=== PATIENT | female | born 1975 | race Caucasian/White ===

== ENCOUNTER 2022-10-14 08:24 | Observation (INO) ==
--- NOTE | 2022-09-08 15:09 | PAT Medication Instructions ---
Medication Instructions Date of Service September 08, 2022 Home Medications amoxicillin 500 mg tablet 500 mg PO TID aspirin 81 mg tablet,delayed release 81 mg PO QAM multivitamin 1 cap PO QAM Continue as directed amoxicillin 500 mg tablet 500 mg PO TID DO NOT take the morning of surgery multivitamin 1 cap PO QAM Take morning of surgery With a small sip of water, OTHERWISE NOTHING TO EAT OR DRINK AFTER MIDNIGHT: aspirin 81 mg tablet,delayed release 81 mg PO QAM (continue as normal unless told otherwise by surgeon) Other Notes If you have any questions please call us at [phone] or [phone] or [phone] or [phone]
--- NOTE | 2022-09-16 10:45 | Anesthesiology Consultation ---
Date of Service September 16, 2022 Assessment & Plan (1) Encounter for pre-operative examination: Plan - check urine test STAT am DOS. - toothache, scheduled for dental procedure 10/06/22, completed amoxicillin course: pt advised she needs to call the surgeon's office. I notified Sofía with surgeon's office. - Outpatient joint assessment: Patient is currently scheduled for inpatient pathway. If re-evaluated and patient/surgeon requests outpatient pathway, patient is not acceptable candidate for outpatient joint program from anesthesia standpoint. Chart Review Chart Review: Acceptable Risk for Surgery and Patient seen in Pre Admission Testing Teaching & Discussion Pre-Anesthesia Teaching/Discussion Notes: Instructed NPO after midnight before surgery, except medications with 15 cc of water. Medication instructions provided according to the PAT guidelines. History Surgery Operation Date: 10/14/22 09:25 Proposed Procedures p Left Total Knee Arthroplasty - Neel Hatfield, Height/Weight Height: 4 ft 11.5 in Weight: 105.8 kg Allergies Allergy/AdvReac Type Severity Reaction Status Date / Time No Known Allergies Allergy Verified 09/08/22 13:40 Medications Home Medications Medication Instructions Recorded Confirmed Last Taken aspirin 81 mg tablet,delayed 81 mg PO QAM 09/08/22 09/08/22 Unknown release multivitamin 1 cap PO QAM 09/08/22 09/08/22 Unknown Past Medical History Medical History (Updated 09/16/22 @ 10:43 by Theresa Garsia PA-C) Elbow fracture, left 14 y/o Family history of reaction to anesthesia sister - occ nausea. GERD (gastroesophageal reflux disease) rare, stable per pt Toothache unknown cause of toothache...current abx for/awaiting dental appointment/currently scheduled for Oct 06 2022. Patient denies h/o stroke, seizures, heart attack, heart failure, DM, HTN, blood clots or blood transfusions. Exercise / Class Metabolic Activity III < 4 Walking/Shop/Light housework (denies chest discomfort or shortness of breath with usual activities) Past Family History Family History Mother Family history of lung cancer Other Family history of cancer Family history of diabetes mellitus in father Past Surgical History Surgical History History of appendectomy History of tonsillectomy and adenoidectomy Past Anesthesia History No Hx of Anesthesia Complications and Other (sister with occasional nausea) History of PONV No Hx of PONV and No Hx of Motion Sickness Social History Smoking Status: Former smoker (intermittently) Do You Dip or Chew Tobacco: No Hx Alcohol Use: Yes alcohol intake frequency: holidays/special occasions only Hx Substance Use: No substance use type: does not use Review of Systems Snoring, denies witnessed apneas. Patient denies chest pain, shortness of breath, dyspnea on exertion, fever, chills, cough, wheezing, or palpitations. Physical Exam Vital Signs Vitals BP 112/67 P 73 TEMP 98.7 SP02 96% on RA RESP 18 Physical Patient resting comfortably in chair in NAD, alert and oriented, responding appropriately throughout visit Full cervical extension range of motion without pain TMD < 3 finger breadths Mallampati Score 3 Dentition: current left lower side chipped tooth, denies loose teeth, caps/crowns, implants or bridges Lungs: normal respiratory effort. Good air movement, clear throughout to auscultation, no adventitious breath sounds Cardiac: regular rate and rhythm, no murmurs noted Carotid arteries: negative bruit bilat Lab Results Anesthesia Preop Results Results Anesthesia Widget: WBC 6.37 K/ul (4.8-10.8) 09/16/22 Hgb 12.8 g/dl (12.0-16.0) 09/16/22 Hct 37.5 % (37.0-47.0) 09/16/22 Plt 378 K/uL (130-400) 09/16/22 Na 137 mmol/L (136-145) 09/16/22 K 4.8 mmol/L (3.5-5.1) 09/16/22 Cl 105 mmol/L (98-107) 09/16/22 CO2 27 mmol/L (21-32) 09/16/22 BUN 10 mg/dl (6-23) 09/16/22 Creat 0.74 mg/dl (0.6-1.2) 09/16/22 Glucose Level 94 mg/dl (70-99(Fasting)) 09/16/22 PT 10.9 Seconds (9.0-12.0) 09/16/22 PTT 27.3 Seconds (21.0-31.0) 09/16/22 INR 1.0 (0.9-1.1) 09/16/22 Blood Type AB Positive 09/16/22 Antibody Screen NEGATIVE 09/16/22 Testing Electrocardiogram Date: 09/16/22 NSR, rate 65 bpm Chest X-Ray Date: 09/16/22 No acute cardiopulmonary findings
--- NOTE | 2022-10-13 07:22 | History & Physical Report ---
Date of Service October 13, 2022 Assessment & Plan (1) Osteoarthritis of left knee: We will proceed with a left total knee arthroplasty. Postoperatively she will be started on aspirin for DVT prophylaxis and kept overnight in the hospital for postop medical management. She plans to have the hospital set up home health for discharge. History of Present Illness Chief Complaint: Osteoarthritis of the left knee. Primary Care Provider: Mabel Irwin Iker Dale is a pleasant 46-year-old female who has been dealing with chronic increasing bilateral knee pain, left worse than right. This has been going on for years. She has been seeing another provider. She has had multiple injections. She has done therapy. She has been taking anti-inflammatories and has done activity modification. Unfortunately, her symptoms are worsening and her function is declining. She is having a difficult time ambulating. After failed extensive conservative treatment, she has elected proceed with a left total knee arthroplasty. . Allergies Allergy/AdvReac Type Severity Reaction Status Date / Time No Known Allergies Allergy Verified 09/08/22 13:40 Home Medications Medication Instructions Recorded Confirmed Type aspirin 81 mg tablet,delayed 81 mg PO QAM 09/08/22 09/08/22 History release multivitamin 1 cap PO QAM 09/08/22 09/08/22 History Past Med/Surg History Medical History Elbow fracture, left 14 y/o Family history of reaction to anesthesia sister - occ nausea. GERD (gastroesophageal reflux disease) rare, stable per pt Toothache unknown cause of toothache...current abx for/awaiting dental appointment/currently scheduled for Oct 06 2022. Surgical History History of appendectomy History of tonsillectomy and adenoidectomy Family History Mother Family history of lung cancer Other Family history of cancer Family history of diabetes mellitus in father Social History Smoking Status: Former smoker (intermittently) Do You Dip or Chew Tobacco: No; Hx Alcohol Use: Yes Hx Substance Use: No Preferred Language: Tajik Communication Ability: Effective Tribal [employer] Member Required: No Beliefs That Will Affect Care: None Current Living Situation: Family Current Living Situation Comment: live with parents Feels Safe at Home: Yes Assistive Devices: Contacts and Glasses Review of Systems All systems reviewed & are unremarkable except as noted in HPI & below. Physical Exam On physical examination of left knee, she has range of motion from 10 to 90 degrees. She has no gross instability. She has pain over the distal medial femoral condyle.. Constitutional WD/WN, vitals as above Eyes PERRL, conjunctivae normal, anicteric sclerae ENMT external ear and nose normal, oropharynx normal Neck trachea midline, no thyromegaly Respiratory normal respiratory effort, lungs clear to auscultation Cardiovascular RRR, no murmur, no edema Gastrointestinal (Abdomen) normal bowel sounds, soft, nontender, no hepatosplenomegaly Skin no rashes, warm and dry Psychiatric A+Ox3, euthymic affect Results & Data Results & Data Laboratory Results . Diagnostic Findings X-rays of the left knee show severe osteoarthritis with joint space narrowing osteophyte formation and [id number] tubulation.. PG Care Time/CCT Total # of Minutes Spent Total Time Spent with Patient: Total time spent is greater than 50% in coordination of care (as documented) at patient's floor/unit and/or counseling patient: Coding Level of Care Code None Diagnoses Osteoarthritis of left knee M17.12
--- NOTE | 2022-10-14 08:14 | History & Physical Bridge Note ---
Date of Service October 14, 2022 History & Physical Bridge Note I have examined the patient, reviewed the History & Physical and in the interval since the performance of the History & Physical I have noted the following changes of clinical significance: no changes noted
[~2022-10-14 08:24] MED LIST: ACETAMINOPHEN 500 MG TAB PO SCH; BUPIVACAINE 0.5 % 5 MG/1 ML PF 10ML VIAL ONE; FAMOTIDINE 20 MG TAB PO SCH; GABAPENTIN 900 MG DOSE PO SCH; LR 500ML BOLUS, THEN 15ML/HR IV SCH; LR 60ML/HR IV SCH; ORTHO JOINT MIX INFIL SCH; ROPIVACAINE 0.5% 5 MG/ML 30 ML VIAL ONE; TRANEXAMIC ACID 1,000 MG **IV Intra-op IV SCH; TRANEXAMIC ACID 1,000 MG **IV Pre-op IV SCH; ceFAZolin 2000MG 2,000 MG/15 ML SYR IV SCH; dexAMETHasone 4 MG TAB PO SCH
[2022-10-14] MEDS ORDERED: PROPOFOL IV EMULSION 10 MG/ML 20 ML VIAL IV ONE (08:25)
[2022-10-14] MEDS ORDERED: MIDAZOLAM HCL 1 MG/ML 2ML VIAL ONE (08:25)
[2022-10-14] MEDS ORDERED: KETAMINE 50 MG/5 ML SYRINGE ONE (08:25)
[2022-10-14] MEDS ORDERED: LIDOCAINE 2% 2 ML VIAL/AMP(20MG/ML) INFIL ONE (08:25)
[2022-10-14] MEDS ORDERED: ORTHO JOINT ANESTHETIC ONE (09:11)
[2022-10-14] MEDS ORDERED: ATROPINE SULFATE 0.1 MG/ML 10ML SYR IV PRN (09:19)
[2022-10-14] MEDS ORDERED: fentaNYL citrate PF 100 MCG/2 ML VIAL IV PRN (09:19)
[2022-10-14] MEDS ORDERED: ONDANSETRON INJ 2 MG/ML 2 ML VIAL IV PRN ×2 (09:19→12:33)
[2022-10-14] MEDS ORDERED: ePHEDrine sulfate 50 MG/ML AMP IV PRN (09:19)
--- NOTE | 2022-10-14 11:02 | Operative Report ---
PG Post Operative Report Pre & Post Diagnosis Operation Date: 10/14/22 10:00 Pre-Op Diagnosis: Degenerative Joint Disease Left Knee Post-Op Diagnosis: Degenerative Joint Disease Left Knee I identified the patient and participated in the time-out.: Yes Procedure Operation Date: 10/14/22 10:00 Actual Procedures p Left Total Knee Arthroplasty(Left) - Neel Hatfield DO Surgeon Neel Hatfield DO [employer] Machine Operator Neel Weston PA-C Estimated Blood Loss 30 Findings Consistent with Post-Op Diagnosis Specimens Left femoral tibial bone Description of Procedure Implants used: I used a Anat Persona total knee arthroplasty system with a size 6 standard PS femur, C tibia, 31 oval patella, and a size 12 CPS polyethylene bearing. All components were cemented in place with Biomet cement. [facility] for the above procedure. She was seen in the preoperative holding area and the operative extremity was identified and signed. She was given a preoperative antibiotic, TXA, a spinal anesthetic and an adductor nerve block. She was taken back to the operating room and laid on the table in supine position. She was given basic sedation. The operative knee was then prepped and draped in sterile fashion. A timeout was done, and the patient and the operative extremity was properly identified. A midline incision was made directly over the patella. Dissection was taken down to the extensor mechanism. A midvastus arthrotomy was used. The medial retinaculum was released and the fat pad was mostly excised. The knee was flexed and the ACL, PCL, and meniscus were removed. A drill was sent down the center of the femoral canal followed by an intramedullary ange. Off that ange a distal femoral cutting block was placed. 9 mm was resected off the distal femur at 5 of valgus. A posterior referencing AP sizing guide was then placed on the distal femur. The femur measured to be a size 6. 2 drill holes were placed in 3 of external rotation. A 4-in-1 cutting block was then impacted into place. Anterior, posterior, and chamfer cuts were then made. The proximal tibia was then exposed. An external tibial alignment guide was placed. A tibial cut guide was then anchored in place and the proximal tibia was then resected. The posterior aspect of the knee was then opened up and any additional meniscus fragments and osteophytes were removed. The tibia measured to be a size C. The tibial plate was then placed in the appropriate rotation and the tibia was drilled and punched. Trial components were then placed. I used a size 12 CPS polyethylene insert. The knee was brought through a full range of motion and felt to be stable. The peg holes for the femoral component were then drilled. The patella was then everted and 9 mm was resected off the posterior aspect of the patella. The patella measured to be a size 31 oval. 3 peg holes were then drilled. A trial patella was placed. The knee was once again brought through a full range of motion and felt to be stable. Trial components were then removed. The surrounding soft tissues were injected with 100 cc of an orthopedic pain control cocktail. All components were then cemented into place with Biomet cement. The final polyethylene insert was then snapped into place. Once cement was dry the tourniquet was deflated. Hemostasis was obtained. A dilute betadyne lavage was then done for 3 minutes. The joint was then irrigated with normal saline solution. The midvastus arthrotomy was then closed with #1 Vicryl suture. The skin was closed with 2-0 Vicryl, 3-0V lock suture, and bhavana. A soft compressive dressing was placed. She was then transferred to a hospital bed and taken to the postanesthesia care unit in stable condition. She tolerated the procedure well. Neel Weston PA-C, was present for the entire procedure. He was critical for patient positioning, prepping, draping, retraction exposure, wound closure and application of sterile dressing. I attest to the content of the Intraoperative Record and any orders documented therein. Any exceptions are noted below.
--- NOTE | 2022-10-14 12:19 | Anesthesiology Progress Note ---
Date of Service October 14, 2022 Anesthesia Post Procedure Vital Signs Vital Signs: Temp Pulse Resp BP Pulse Ox O2 Del Method O2 Flow Rate 10/14/22 12:05 98.2 F 66 17 116/77 99 Room Air 10/14/22 11:55 69 18 117/70 98 Room Air 10/14/22 11:45 63 20 112/72 99 Nasal Cannula 2 10/14/22 11:35 68 22 114/73 99 Nasal Cannula 2 10/14/22 11:25 98.2 F 79 18 114/68 94 Nasal Cannula 2 10/14/22 08:42 98.6 F 103 H 20 134/82 95 Room Air Pain Intensity Left Knee: Pain Intensity: 0 Transfer of Care Handoff Completed per policy Notes Mental Status: alert / awake / arousable and participated in evaluation Patient Amnestic to Procedure: Yes Nausea / Vomiting: adequately controlled Pain: adequately controlled Airway Patency, RR, SpO2: stable & adequate BP & HR: stable & adequate Hydration State: stable & adequate Anesthetic Complications: no major complications apparent and Pt Satisfied with anesthetic care
[2022-10-14] MEDS ORDERED: SODIUM CHLORIDE 0.9% 1,000 ML IV SCH (12:33)
[2022-10-14] MEDS ORDERED: HYDROmorphone INJ 0.5 MG/0.5 ML SYR IV PRN (12:33)
[2022-10-14] MEDS ORDERED: oxyCODONE HCL IR 5 MG TAB (IMMEDIATE RELEASE) PO PRN (12:33)
[2022-10-14] MEDS ORDERED: NALOXONE HCL 0.4 MG/1 ML VIAL/CARP IV PRN (12:33)
[2022-10-14] MEDS ORDERED: METOCLOPRAMIDE HCL INJ 5 MG/ML 2 ML VIAL IV PRN (12:33)
[2022-10-14] MEDS ORDERED: MAGNESIUM HYDROXIDE SUSP 30 ML UDC PO PRN (12:33)
[2022-10-14] MEDS ORDERED: bisacodyL 10 MG SUPP PR PRN (12:33)
--- NOTE | 2022-10-14 12:41 | XRay Report ---
XR knee LT 1 or 2V routine CLINICAL HISTORY: Surgical Post Op TECHNIQUE: 2 views of the left knee were obtained. Comparison: Comparison is made to knee radiograph 08/17/2022 FINDINGS: Patient is status post total knee arthroplasty with expected postsurgical changes including soft tiss ue swelling and subcutaneous emphysema. No periarticular lucency or hardware fracture is seen. IMPRESSION: Expected postoperative appearance status post placement of total knee arthroplasty. ACT 112: Negative or not required by law. Electronically signed by: Bonilla Good M.D. 10/14/2022 12:40 PM
[2022-10-14] MEDS: ACETAMINOPHEN 500 MG TAB PO SCH ×2 (13:25→21:34)
[2022-10-14] MEDS: KETOROLAC 30 MG/ML VIAL IV SCH ×2 (13:25→18:29)
[2022-10-14] MEDS: ceFAZolin 2000MG 2,000 MG/15 ML SYR IV SCH (17:17)
[2022-10-14] MEDS: ASPIRIN 81 MG ECTAB PO SCH (20:18)
[2022-10-14] MEDS: DOCUSATE SODIUM 100 MG CAP PO SCH (20:19)
[2022-10-14] MEDS ORDERED: SENNA 8.6 MG TAB PO SCH (21:00)
[2022-10-15] MEDS: ceFAZolin 2000MG 2,000 MG/15 ML SYR IV SCH (01:30)
[2022-10-15] MEDS: KETOROLAC 30 MG/ML VIAL IV SCH ×2 (01:30→06:07)
[2022-10-15] MEDS: ACETAMINOPHEN 500 MG TAB PO SCH (06:07)
[2022-10-15] MEDS: ASPIRIN 81 MG ECTAB PO SCH (08:00)
[2022-10-15] MEDS ORDERED: dexAMETHasone 4 MG TAB PO SCH (08:00)
[2022-10-15] MEDS: DOCUSATE SODIUM 100 MG CAP PO SCH (08:01)
--- NOTE | 2022-10-15 08:20 | Orthopedic Progress Note ---
Date of Service October 15, 2022 Assessment & Plan (1) Status post left knee replacement: Overall she is doing very well. She is not having much pain in the left knee. She will be seen by physical therapy today for ambulation and range of motion exercises. She is on aspirin for DVT prophylaxis. She can be discharged home later today. She will follow-up with orthopedics in 2 weeks. Kerrie Dale was seen and examined at bedside this morning. Overall she is doing well. She is not having much pain in the left knee. She has been up and ambulating to the bathroom. She has no complaints.. Review of Systems All systems reviewed & are unremarkable except as noted in HPI & below. Physical Exam On physical examination of the left knee, the dressing is clean and dry. Her leg is out full extension. She has active dorsiflexion plantarflexion of her left ankle.. Results & Data Results & Data Laboratory Results . Diagnostic Findings Postoperative x-rays of the right knee show the prosthesis to be in anatomic alignment without any evidence of fracture, screws, or loosening.. PG Care Time/CCT Total # of Minutes Spent Total Time Spent with Patient: Total time spent is greater than 50% in coordination of care (as documented) at patient's floor/unit and/or counseling patient: Coding Level of Care Code 90576 Post Operative Follow-Up Diagnoses Status post left knee replacement Z96.652
--- NOTE | 2022-10-15 08:21 | Discharge Summary ---
Date of Service October 15, 2022 Admission HPI (Per Admitting) Chito is a pleasant 46-year-old female who has been dealing with chronic increasing bilateral knee pain, left worse than right. This has been going on for years. She has been seeing another provider. She has had multiple injections. She has done therapy. She has been taking anti-inflammatories and has done activity modification. Unfortunately, her symptoms are worsening and her function is declining. She is having a difficult time ambulating. After failed extensive conservative treatment, she has elected proceed with a left total knee arthroplasty. . Admission Exam (Per Admitting) On physical examination of left knee, she has range of motion from 10 to 90 degrees. She has no gross instability. She has pain over the distal medial femoral condyle.. Principal Diagnosis Same as "Discharge Diagnosis" noted below under Discharge Instructions. Discharge Exam On physical examination of the left knee, the dressing is clean and dry. Her leg is out full extension. She has active dorsiflexion plantarflexion of her left ankle.. Discharge Data Procedures Performed Operation Date: 10/14/22 10:00 Actual Procedures p Left Total Knee Arthroplasty(Left) - Neel Hatfield DO Ordered Studies 10/14/22 05:00 US - OR guided needle placemen Routine Hospital Course (1) Status post left knee replacement: On October 14, 2022. Chito arrived at [facility] and underwent a left knee replacementwithout complication. She had a spinal anesthetic. Postoperatively she was started on aspirin for DVT prophylaxis and transferred to the general orthopedic floors. Her hospital course was uneventful. On postop day #1, her vital signs were stable and her pain was well controlled. She was able to participate well with physical therapy doing ambulation and range of motion exercises. She was then discharged home. She will follow with orthopedics in 2 weeks. PG Care Time/CCT Total # of Minutes Spent Total Time Spent with Patient: Total time spent is greater than 50% in coordination of care (as documented) at patient's floor/unit and/or counseling patient: Discharge Plan Discharge Items Patient Disposition: Home - Home Health Services Reason For Visit: Degeneartive Jonit Disease Left Knee Discharge Diagnosis: Left knee replacement Activity: Per Instructions section Non-emergency contact: Surgeon Call non-emergency contact if: your wound has increased redness and your wound has increased drainage Follow-up/Referrals: Mabel Dong M.D. [Primary Care Provider] - Diet: Regular Addtl Attending Provider Instructions: Activity and Therapy Recommendations: * If you are using [facility] then therapy will be provided at your home until they feel you have accomplished all of your goals. * If you are using [facility] then Physical Therapy will be provided until they feel you are ready to start Outpatient Physical Therapy. * If you are not using home therapy then Outpatient Physical Therapy should start about 3-5 days from your day of surgery. Therapy will last about 6-10 weeks * It is important not to put a pillow under your knee when you are relaxing or sleeping. It is just as important to make sure you are getting your knee perfectly straight as it is to regain your knee bend. * You were shown a series of exercises in the hospital. Do these exercises three times each day including the exercises you were shown in physical therapy. * Get up and walk several times each day. For the first four weeks, try not to stand or walk for more than one hour at a time. If you do stand or walk for more than one hour, you will not hurt anything, but your leg will likely swell. * As you feel comfortable, you may change from the walker or crutches to a cane and then to independent walking. Medications: * Narcotic You will likely be sent home from the hospital with a prescription for the narcotic pain medication that worked best throughout your stay. * Aspirin Most patients will be required to take Aspirin 81mg twice a day for 6 weeks after surgery. This is obtained [id number] and a prescription is not necessary. * Other medications may be prescribed for specific circumstances. If you have any questions, please call the office at . * Resume previous home medications unless otherwise instructed TEDs/Elastic Stockings: The white elastic stockings help limit swelling and prevent blood clots from forming in your legs.~ The more you wear them, the more they work. Wear them for six weeks. Dressing Care: The dressing can be changed after physical therapy on postop day #1. Daily dry dressing changes for a few days, especially if the incision is still draining some. If the incision is not draining then you may leave the bhavana open to air. If there is a little bit of drainage or if the bhavana are getting stuck on your clothing then cover the incision with a dry dressing. The bhavana will be removed at your 2 week follow-up appointment. Showering: You may shower 5 days from the day of surgery as long as the incision is no longer draining. You may shower with the bhavana exposed. Let soapy water run over the bhavana and pat them dry. Do not scrub or soak the incision. Things To Watch For: * Drainage from the incision site that occurs more than one week after your surgery. * Increased redness at the incision site. * Fever above 102 degrees Fahrenheit. * Unusual chest pain or shortness of breath. * Call [facility] at with any of the above problems Follow-Up Visit: Follow-up with Dr. Hatfield's PA (Neel Weston) 2-3 weeks after your day of surgery. He will remove your bhavana and answer any questions. If you have any additional questions or concerns, Dr Hatfield is usually in the office at the same time and will be available An appointment was probably scheduled when you signed-up for surgery in the office. If you have any questions call Office Instructions: More detailed instructions as well as Frequently Asked Questions were provided in a folder by our office when you signed-up for surgery. Please review these instructions when you get home. If you have any further questions or concerns, please feel free to call the office at [phone] Pending Studies at Discharge: No Stand-Alone Forms: [facility], Smoking Cessation Medications and DC Order Prescriptions: New oxycodone 5 mg Tablet 5 mg PO Q4H PRN (Reason: pain) Qty: 30 0RF Continued multivitamin Capsule 1 cap PO QAM Changed aspirin 81 mg Tablet,Delayed Release (Dr/Ec) 81 mg PO BID 42 Days Qty: 0 0RF Admission Data Admit Date/Time: 10/14/22 11:27 Attending Provider: Neel Hatfield Admit Provider: Neel Hatfield Primary Care Provider: Mabel Dong Other Providers: [facility],Home Healthcare
[2022-10-15] MEDS ORDERED: MULTIVITAMIN TAB PO SCH (09:00)
== END 2022-10-15 10:55 | disposition home health service (06) ==
LOC: ASU 08:24 → 3N 08:24

== ENCOUNTER 2023-01-25 08:23 | Observation (INO) ==
--- NOTE | 2023-01-19 07:02 | History & Physical Report ---
Date of Service January 19, 2023 Assessment & Plan (1) Localized osteoarthritis of right knee: We will proceed with a right total knee arthroplasty. Postoperatively she will be started on aspirin for DVT prophylaxis and kept overnight in the hospital for postop medical management. She plans to have the hospital set up home health upon discharge. History of Present Illness Chief Complaint: Osteoarthritis of the right knee. Primary Care Provider: Mabel Irwin Iker Dale is a pleasant 47-year-old female whose been doing with chronic increasing right knee pain. X-rays clinical examination of the diagnostic for advanced osteoarthritis of the right knee. She underwent a left knee replacement in October 2022 and has done well with that. She would like to proceed with a right total knee arthroplasty.. Allergies Allergy/AdvReac Type Severity Reaction Status Date / Time No Known Allergies Allergy Verified 01/12/23 12:43 Home Medications Medication Instructions Recorded Confirmed Type multivitamin 1 cap PO QAM 09/08/22 01/12/23 History aspirin 81 mg tablet,delayed 81 mg PO QAM 01/12/23 01/12/23 History release Past Med/Surg History Medical History Morbid obesity GERD (gastroesophageal reflux disease) rare sx per pt; diet controlled Elbow fracture, left 14 y/o Family history of reaction to anesthesia sister - occ nausea. Surgical History History of left knee replacement L TKA 10/14/22: regional, SAB (L4-5 x 1 attempt) History of appendectomy History of tonsillectomy and adenoidectomy Family History Mother Family history of lung cancer Other Family history of cancer Family history of diabetes mellitus in father Social History Smoking Status: Never smoker Second Hand Exposure: No; Do You Dip or Chew Tobacco: No; Tobacco Cessation Education Requested by Patient: No Hx Alcohol Use: No Hx Substance Use: No Preferred Language: Indonesian Communication Ability: Effective Ball Winder Required: No Beliefs That Will Affect Care: None Current Living Situation: Family Current Living Situation Comment: live with parents Other Information That Helps Us Care for You: No Feels Safe at Home: Yes Safety Concerns: Feels Safe At This Time Assistive Devices: Glasses Review of Systems All systems reviewed & are unremarkable except as noted in HPI & below. Physical Exam On physical examination the right knee, she has significant tenderness palpation of the distal medial femoral condyle and over the medial joint line. She has decreased range of motion.. Constitutional WD/WN, vitals as above Eyes PERRL, conjunctivae normal, anicteric sclerae ENMT external ear and nose normal, oropharynx normal Neck trachea midline, no thyromegaly Respiratory normal respiratory effort Cardiovascular RRR, no murmur, no edema Gastrointestinal (Abdomen) normal bowel sounds, soft, nontender, no hepatosplenomegaly Psychiatric A+Ox3, euthymic affect Results & Data Results & Data Laboratory Results . Diagnostic Findings X-rays of the right knee show advanced osteoarthritis with joint space narrowing, osteophyte formation, and [id number] articulation.. PG Care Time/CCT Total # of Minutes Spent Total Time Spent with Patient: Total time spent is greater than 50% in coordination of care (as documented) at patient's floor/unit and/or counseling patient: Coding Level of Care Code None Diagnoses Localized osteoarthritis of right knee M17.11
--- NOTE | 2023-01-20 08:35 | Anesthesiology Consultation ---
Date of Service January 20, 2023 Assessment & Plan (1) Encounter for pre-operative examination: - Check test AM DOS - Infectious disease screening: Per assessment on 01/12/23: No known infectious disease contacts or current infectious disease symptoms. No noted Covid positive test result in past 90 days. - Outpatient joint assessment: Pt currently scheduled for inpatient pathway. If surgeon requests review for outpatient joint pathway, patient is not recommended candidate for outpatient joint program from anesthesia standpoint. - S/P Left TKA 10/14/22: regional, SAB (L4-5 x 1 attempt) Chart Review Chart Review: Acceptable Risk for Surgery and Patient NOT seen in Pre Admission Testing History Surgery Operation Date: 01/25/23 08:00 Proposed Procedures p Right Total Knee Arthroplasty - Neel Hatfield, Height/Weight Height: 4 ft 11 in Weight: 102.058 kg Allergies Allergy/AdvReac Type Severity Reaction Status Date / Time No Known Allergies Allergy Verified 01/12/23 12:43 Medications Home Medications Medication Instructions Recorded Confirmed Last Taken multivitamin 1 cap PO QAM 09/08/22 01/12/23 10/13/22 09:00 aspirin 81 mg tablet,delayed 81 mg PO QAM 01/12/23 01/12/23 Unknown release Past Medical History Medical History Morbid obesity GERD (gastroesophageal reflux disease) rare symptoms, diet controlled Elbow fracture, left Age 14 Past Family History Family History Mother Family history of lung cancer Other Family history of cancer Family history of diabetes mellitus in father Past Surgical History Surgical History Family history of reaction to anesthesia sister- occasional nausea History of left knee replacement Left TKA 10/14/22: regional, SAB (L4-5 x 1 attempt) History of appendectomy History of tonsillectomy and adenoidectomy Social History Smoking Status: Never smoker Do You Dip or Chew Tobacco: No Hx Alcohol Use: No alcohol intake frequency: holidays/special occasions only Hx Substance Use: No substance use type: does not use Lab Results Anesthesia Preop Results Results Anesthesia Widget: WBC 7.64 K/ul (4.8-10.8) 01/19/23 Hgb 13.1 g/dl (12.0-16.0) 01/19/23 Hct 39.5 % (37.0-47.0) 01/19/23 Plt 434 K/uL (130-400) H 01/19/23 Na 138 mmol/L (136-145) 01/19/23 K 4.1 mmol/L (3.5-5.1) 01/19/23 Cl 105 mmol/L (98-107) 01/19/23 CO2 27 mmol/L (21-32) 01/19/23 BUN 9 mg/dl (6-23) 01/19/23 Creat 0.65 mg/dl (0.6-1.2) 01/19/23 Glucose Level 100 mg/dl (70-99(Fasting)) H 01/19/23 PT 10.6 Seconds (9.0-12.0) 01/19/23 PTT 26 Seconds (21-31) 01/19/23 INR 1.0 (0.9-1.1) 01/19/23 Blood Type AB Positive 01/19/23 Antibody Screen NEGATIVE 01/19/23 Testing Electrocardiogram Date: 09/16/22 NSR, rate 65 bpm Chest X-Ray Date: 09/16/22 No acute cardiopulmonary findings
[2023-01-25] MEDS ORDERED: PROPOFOL IV EMULSION 10 MG/ML 20 ML VIAL IV ONE ×2 (08:50→11:14)
[2023-01-25] MEDS ORDERED: MIDAZOLAM HCL 1 MG/ML 2ML VIAL ONE ×2 (08:51→10:37)
--- NOTE | 2023-01-25 09:24 | History & Physical Bridge Note ---
Date of Service January 25, 2023 History & Physical Bridge Note I have examined the patient, reviewed the History & Physical and in the interval since the performance of the History & Physical I have noted the following changes of clinical significance: no changes noted
[2023-01-25] MEDS ORDERED: ATROPINE SULFATE 0.1 MG/ML 10ML SYR IV PRN (09:56)
[2023-01-25] MEDS ORDERED: ePHEDrine sulfate 50 MG/ML AMP IV PRN (09:56)
[2023-01-25] MEDS ORDERED: ONDANSETRON INJ 2 MG/ML 2 ML VIAL IV PRN ×2 (09:56→13:54)
[2023-01-25] MEDS ORDERED: fentaNYL citrate PF 100 MCG/2 ML VIAL IV PRN (09:56)
[2023-01-25] MEDS ORDERED: ORTHO JOINT ANESTHETIC ONE (10:15)
[2023-01-25] MEDS ORDERED: LIDOCAINE 2% 2 ML VIAL/AMP(20MG/ML) INFIL ONE (10:43)
--- NOTE | 2023-01-25 12:59 | Operative Report ---
PG Post Operative Report Pre & Post Diagnosis Operation Date: 01/25/23 10:00 Pre-Op Diagnosis: Degenerative Joint Disease Right Knee Post-Op Diagnosis: Degenerative Joint Disease Right Knee I identified the patient and participated in the time-out.: Yes Procedure Operation Date: 01/25/23 10:00 Actual Procedures p Right Total Knee Arthroplasty(Right) - Neel Hatfield DO Surgeon Neel Hatfield DO Child Care Lead Teacher Mayo Bruce PA-C Estimated Blood Loss 30 Findings Consistent with Post-Op Diagnosis Specimens Right femoral and tibial bone Description of Procedure Implants used: I used a Anat Persona total knee arthroplasty system with a size 6 standard PS femur, C tibia, 31 oval patella, and a size 10 CPS polyethylene bearing. All components were cemented in place with Biomet cement. [facility] for the above procedure. She was seen in the preoperative holding area and the operative extremity was identified and signed. She was given a preoperative antibiotic, TXA, a spinal anesthetic and an adductor nerve block. She was taken back to the operating room and laid on the table in supine position. She was given basic sedation. The operative knee was then prepped and draped in sterile fashion. A timeout was done, and the patient and the operative extremity was properly identified. A midline incision was made directly over the patella. Dissection was taken down to the extensor mechanism. A midvastus arthrotomy was used. The medial retinaculum was released and the fat pad was mostly excised. The knee was flexed and the ACL, PCL, and meniscus were removed. A drill was sent down the center of the femoral canal followed by an intramedullary ange. Off that ange a distal femoral cutting block was placed. 9 mm was resected off the distal femur at 5 of valgus. A posterior referencing AP sizing guide was then placed on the distal femur. The femur measured to be a size 6. 2 drill holes were placed in 3 of external rotation. A 4-in-1 cutting block was then impacted into place. Anterior, posterior, and chamfer cuts were then made. The proximal tibia was then exposed. An external tibial alignment guide was placed. A tibial cut guide was then anchored in place and the proximal tibia was then resected. The posterior aspect of the knee was then opened up and any additional meniscus fragments and osteophytes were removed. The tibia measured to be a size C. The tibial plate was then placed in the appropriate rotation and the tibia was drilled and punched. Trial components were then placed. I used a size 10 CPS polyethylene insert. The knee was brought through a full range of motion and felt to be stable. The peg holes for the femoral component were then drilled. The patella was then everted and 9 mm was resected off the posterior aspect of the patella. The patella measured to be a size 31 oval. 3 peg holes were then drilled. A trial patella was placed. The knee was once again brought through a full range of motion and felt to be stable. Trial components were then removed. The surrounding soft tissues were injected with 100 cc of an orthopedic pain control cocktail. All components were then cemented into place with Biomet cement. The final polyethylene insert was then snapped into place. Once cement was dry the tourniquet was deflated. Hemostasis was obtained. A dilute betadyne lavage was then done for 3 minutes. The joint was then irrigated with normal saline solution. The midvastus arthrotomy was then closed with #1 Vicryl suture. The skin was closed with 2-0 Vicryl, 3-0V lock suture, and bhavana. A soft compressive dressing was placed. She was then transferred to a hospital bed and taken to the postanesthesia care unit in stable condition. She tolerated the procedure well. Mayo Bruce PA-C, was present for the entire procedure. He was critical for patient positioning, prepping, draping, retraction exposure, wound closure and application of sterile dressing. I attest to the content of the Intraoperative Record and any orders documented therein. Any exceptions are noted below.
--- NOTE | 2023-01-25 13:38 | Anesthesiology Progress Note ---
Date of Service January 25, 2023 Anesthesia Post Procedure Vital Signs Vital Signs: Temp Pulse Pulse Resp BP BP Pulse Ox 01/25/23 13:30 79 18 128/88 98 01/25/23 13:15 75 21 112/74 99 01/25/23 13:00 97.7 F 79 17 111/85 99 01/25/23 12:50 72 19 111/73 99 01/25/23 12:40 74 18 107/69 100 01/25/23 12:30 84 21 115/73 99 01/25/23 12:23 98.1 F 87 21 100/80 97 01/25/23 08:52 98.6 F 91 H 20 119/94 95 O2 Del Method O2 Flow Rate 01/25/23 13:30 Nasal Cannula 2 01/25/23 13:15 Nasal Cannula 2 01/25/23 13:00 Nasal Cannula 2 01/25/23 12:50 Nasal Cannula 2 01/25/23 12:40 Nasal Cannula 2 01/25/23 12:30 Nasal Cannula 2 01/25/23 12:23 Nasal Cannula 2 01/25/23 08:52 Room Air Transfer of Care Handoff Completed per policy Notes Mental Status: alert / awake / arousable and participated in evaluation Patient Amnestic to Procedure: Yes Nausea / Vomiting: adequately controlled Pain: adequately controlled Airway Patency, RR, SpO2: stable & adequate BP & HR: stable & adequate Hydration State: stable & adequate Neuraxial Anesthesia: was administered and sensory block is resolving Anesthetic Complications: no major complications apparent and Pt Satisfied with anesthetic care
[2023-01-25] MEDS ORDERED: oxyCODONE HCL IR 5 MG TAB (IMMEDIATE RELEASE) PO PRN (13:54)
[2023-01-25] MEDS ORDERED: traMADol HCL 50 MG TABLET PO PRN (13:54)
[2023-01-25] MEDS ORDERED: NALOXONE HCL 0.4 MG/1 ML VIAL/CARP IV PRN (13:54)
[2023-01-25] MEDS ORDERED: bisacodyL 10 MG SUPP PR PRN (13:54)
[2023-01-25] MEDS ORDERED: METOCLOPRAMIDE HCL INJ 5 MG/ML 2 ML VIAL IV PRN (13:54)
[2023-01-25] MEDS ORDERED: HYDROmorphone INJ 0.5 MG/0.5 ML SYR IV PRN (13:54)
[2023-01-25] MEDS ORDERED: MAGNESIUM HYDROXIDE SUSP 30 ML UDC PO PRN (13:54)
--- NOTE | 2023-01-25 14:30 | XRay Report ---
XR knee RT 1 or 2V routine CLINICAL HISTORY: Postoperative evaluation. COMPARISON: Right knee radiographs December 07, 2022. FINDINGS: Alignment of the total right knee arthroplasty is anatomic. No periprosthetic fracture or unexpected radiopaque foreign bodies are present. There are skin bhavana. IMPRESSION: Expected findings following total right knee arthroplasty. ACT 112: Negative or not required by law. Electronically signed by: John Vilchis M.D. 01/25/2023 2:29 PM
[2023-01-25] MEDS: SODIUM CHLORIDE 0.9% 1,000 ML IV SCH (14:47)
[2023-01-25] MEDS: ACETAMINOPHEN 500 MG TAB PO SCH ×2 (15:14→21:40)
[2023-01-25] MEDS: KETOROLAC TROMETHAMINE 15 MG/ML VIAL IV SCH ×2 (15:15→20:16)
[2023-01-25] MEDS: ceFAZolin 2000MG 2,000 MG/15 ML SYR IV SCH (17:25)
[2023-01-25] MEDS: DOCUSATE SODIUM 100 MG CAP PO SCH (20:15)
[2023-01-25] MEDS: ASPIRIN 81 MG ECTAB PO SCH (20:15)
[2023-01-25] MEDS ORDERED: SENNA 8.6 MG TAB PO SCH (21:00)
[2023-01-26] MEDS: SODIUM CHLORIDE 0.9% 1,000 ML IV SCH (00:58)
[2023-01-26] MEDS: KETOROLAC TROMETHAMINE 15 MG/ML VIAL IV SCH ×2 (02:05→08:34)
[2023-01-26] MEDS: ceFAZolin 2000MG 2,000 MG/15 ML SYR IV SCH (02:07)
[2023-01-26] MEDS: ACETAMINOPHEN 500 MG TAB PO SCH (05:34)
[2023-01-26] MEDS ORDERED: dexAMETHasone 4 MG TAB PO SCH (08:00)
[2023-01-26] MEDS: ASPIRIN 81 MG ECTAB PO SCH (08:33)
[2023-01-26] MEDS: DOCUSATE SODIUM 100 MG CAP PO SCH (08:33)
[2023-01-26] MEDS ORDERED: MULTIVITAMIN TAB PO SCH (09:00)
--- NOTE | 2023-01-26 09:50 | Orthopedic Progress Note ---
Date of Service January 26, 2023 Assessment & Plan (1) Status post right knee replacement: Overall, she is doing quite well today with good pain control to the right knee. She will continue working with physical therapy to continue with ambulation and range of motion exercises. She is on aspirin for DVT prophylaxis. She can be discharged later today. She will follow-up with orthopedics in 2 weeks for postoperative care. Subjective .Chito was seen and evaluated today at bedside in no apparent distress. She is currently working with physical therapy during my visit with her. She was participating very well with physical therapy with range of motion and ambulation. She notes that her pain is well-controlled. She denies any other concerns. Review of Systems All systems reviewed & are unremarkable except as noted in HPI & below. Physical Exam . On physical examination of her right knee, dressings are in place, clean, dry, and intact. Her leg is out in full extension. Active plantarflexion dorsiflexion to the right ankle. +2 DP and PT pulses. Less than 2-second capillary refill. Normal sensation. Neurovascular intact. Results & Data Results & Data Laboratory Results . Diagnostic Findings . Postoperative x-rays of the right knee show the prosthesis to be in anatomical alignment with no signs of fracture complication or loosening. PG Care Time/CCT Total # of Minutes Spent Total Time Spent with Patient: Total time spent is greater than 50% in coordination of care (as documented) at patient's floor/unit and/or counseling patient: Coding Level of Care Code 51051 Post Operative Follow-Up Diagnoses Status post right knee replacement Z96.651
--- NOTE | 2023-01-26 09:52 | Discharge Summary ---
Date of Service January 26, 2023 Admission HPI (Per Admitting) Chito is a pleasant 47-year-old female whose been doing with chronic increasing right knee pain. X-rays clinical examination of the diagnostic for advanced osteoarthritis of the right knee. She underwent a left knee replacement in October 2022 and has done well with that. She would like to proceed with a right total knee arthroplasty.. Admission Exam (Per Admitting) On physical examination the right knee, she has significant tenderness palpation of the distal medial femoral condyle and over the medial joint line. She has decreased range of motion.. Principal Diagnosis Same as "Discharge Diagnosis" noted below under Discharge Instructions. Discharge Exam . On physical examination of her right knee, dressings are in place, clean, dry, and intact. Her leg is out in full extension. Active plantarflexion dorsiflexion to the right ankle. +2 DP and PT pulses. Less than 2-second capillary refill. Normal sensation. Neurovascular intact. Discharge Data Procedures Performed Operation Date: 01/25/23 10:00 Actual Procedures p Right Total Knee Arthroplasty(Right) - Neel Hatfield DO Ordered Studies 01/25/23 05:00 US - OR guided needle placemen Routine Hospital Course (1) Status post right knee replacement: On January 25, [address] [facility] and underwent a right total knee arthroplasty without complications. She had a spinal anesthetic. Postoperatively, she was started on aspirin for DVT prophylaxis and transferred to the general orthopedic floor in stable condition. Her hospital course was uneventful. On postoperative day #1, her vital signs were stable and her pain was well-controlled. She participated well with physical therapy doing ambulation and range of motion exercises. She was then discharged home in stable condition. She will follow-up with orthopedics in 2 weeks for postoperative care. PG Care Time/CCT Total # of Minutes Spent Total Time Spent with Patient: Total time spent is greater than 50% in coordination of care (as documented) at patient's floor/unit and/or counseling patient: Discharge Plan Discharge Items Patient Disposition: Home - Home Health Services Reason For Visit: Degenerative Joint Disease Right Knee Discharge Diagnosis: Same Activity: Per Instructions section Non-emergency contact: Surgeon Call non-emergency contact if: your temperature is above 101.5, your wound has increased redness and your wound has increased drainage Follow-up/Referrals: Mabel Dong M.D. [Primary Care Provider] - Diet: Regular Addtl Attending Provider Instructions: Activity and Therapy Recommendations: * If you are using [facility] then therapy will be provided at your home until they feel you have accomplished all of your goals. * If you are using [facility] then Physical Therapy will be provided until they feel you are ready to start Outpatient Physical Therapy. * If you are not using home therapy then Outpatient Physical Therapy should start about 3-5 days from your day of surgery. Therapy will last about 6-10 weeks * It is important not to put a pillow under your knee when you are relaxing or sleeping. It is just as important to make sure you are getting your knee perfectly straight as it is to regain your knee bend. * You were shown a series of exercises in the hospital. Do these exercises three times each day including the exercises you were shown in physical therapy. * Get up and walk several times each day. For the first four weeks, try not to stand or walk for more than one hour at a time. If you do stand or walk for more than one hour, you will not hurt anything, but your leg will likely swell. * As you feel comfortable, you may change from the walker or crutches to a cane and then to independent walking. Medications: * Narcotic You will likely be sent home from the hospital with a prescription for the narcotic pain medication that worked best throughout your stay. * Cefadroxil -take the antibiotic twice a day for 10 days to help prevent infection. * Aspirin Most patients will be required to take Aspirin 81mg twice a day for 6 weeks after surgery. This is obtained [id number] and a prescription is not necessary. * Other medications may be prescribed for specific circumstances. If you have any questions, please call the office at . * Resume previous home medications unless otherwise instructed TEDs/Elastic Stockings: The white elastic stockings help limit swelling and prevent blood clots from forming in your legs.~ The more you wear them, the more they work. Wear them for six weeks. Dressing Care: The dressing can be changed after physical therapy on postop day #1. Daily dry dressing changes for a few days, especially if the incision is still draining some. If the incision is not draining then you may leave the bhavana open to air. If there is a little bit of drainage or if the bhavana are getting stuck on your clothing then cover the incision with a dry dressing. The bhavana will be removed at your 2 week follow-up appointment. Showering: You may shower 5 days from the day of surgery as long as the incision is no longer draining. You may shower with the bhavana exposed. Let soapy water run over the bhavana and pat them dry. Do not scrub or soak the incision. Things To Watch For: * Drainage from the incision site that occurs more than one week after your surgery. * Increased redness at the incision site. * Fever above 102 degrees Fahrenheit. * Unusual chest pain or shortness of breath. * Call [facility] at with any of the above problems Follow-Up Visit: Follow-up with Dr. Hatfield's PA (Neel Weston) 2-3 weeks after your day of surgery. He will remove your bhavana and answer any questions. If you have any additional questions or concerns, Dr Hatfield is usually in the office at the same time and will be available An appointment was probably scheduled when you signed-up for surgery in the office. If you have any questions call Office Instructions: More detailed instructions as well as Frequently Asked Questions were provided in a folder by our office when you signed-up for surgery. Please review these instructions when you get home. If you have any further questions or concerns, please feel free to call the office at [phone] Pending Studies at Discharge: No Stand-Alone Forms: [facility] Rain, Smoking Cessation Medications and DC Order Prescriptions: New aspirin 81 mg Tablet,Delayed Release (Dr/Ec) 81 mg PO BID 42 Days Qty: 84 0RF oxycodone 5 mg Tablet 5 - 10 mg PO Q6 PRN (Reason: pain) Qty: 30 0RF cefadroxil 500 mg capsule 500 mg PO BID 10 Days Qty: 20 0RF Continued multivitamin Capsule 1 cap PO QAM Discontinued aspirin 81 mg tablet,delayed release (DR/EC) 81 mg PO QAM Admission Data Admit Date/Time: 01/25/23 12:26 Attending Provider: Neel Hatfield Admit Provider: Neel Hatfield Primary Care Provider: Mabel Dong
== END 2023-01-26 11:06 | disposition home health service (06) ==
LOC: ASU 08:23 → 3E 08:23